=== PATIENT | female | born 2000 | race Caucasian/White ===

== ENCOUNTER 2021-07-09 08:03 | Outpatient (REF) | payer OTHER, SELFPAY ==
--- NOTE | ~2021-07-09 | US_ITS ---
EXAMINATION: US ABDOMEN COMPLETE CLINICAL INFORMATION: Abdominal pain, epigastric pain. COMPARISON: None. TECHNIQUE: Real-time imaging of the abdominal viscera. FINDINGS: PANCREAS: Normal. ABDOMINAL AORTA: The proximal, mid, and distal segments are normal in caliber. INFERIOR VENA CAVA: Visualized portions are normal. LIVER: The liver is normal in size. The liver contour is normal. There is diffuse increased liver parenchymal echogenicity, consistent with hepatic steatosis. No focal hepatic lesion. There is no intrahepatic biliary duct dilatation seen. GALLBLADDER: Normal. The gallbladder is physiologically distended without evidence of stones, sludge, polyps, wall thickening or pericholecystic fluid. COMMON BILE DUCT: Normal in caliber measuring 0.2 cm in diameter. RIGHT KIDNEY: Normal. No hydronephrosis. No renal calculi or focal parenchymal lesions. The kidney measures 11.9 cm in maximum dimension. LEFT KIDNEY: Normal. No hydronephrosis. No renal calculi or focal parenchymal lesions. The kidney measures 12.4 cm in maximum dimension. SPLEEN: Normal. The spleen measures 12.7 cm in maximum dimension. FREE FLUID: None. US/US abdomen complete IMPRESSION: Findings are most consistent with hepatic steatosis. Otherwise, no acute sonographic abnormalities to explain the patient's symptoms.
== END 2021-07-09 08:04 | disposition home or self-care (01) ==
LOC: HO.US 08:03
PROVIDERS: PCP Pediatrics; Visit Provider Internal Medicine
DX: R10.13 Epigastric pain (principal)
CPT/HCPCS: 76700

== ENCOUNTER 2021-12-16 10:41 | Emergency (ER) | payer OTHER, SELFPAY ==
[2021-12-16 10:45] VITALS: BP 141/67; PULSE 70; RESP 18; TEMP 36.5; O2SAT 97; BMI 40.7
--- NOTE | 2021-12-16 11:13 | ED.ABDPAIN ---
HPI - Abdominal Pain General Chief Complaint: Abdominal Pain Stated Complaint: IBS Time Seen by Provider: 12/16/21 11:04 Source: patient Mode of arrival: ambulatory Limitations: no limitations History of Present Illness HPI narrative: Patient comes to the emergency room complaining diffuse abdominal pain. Patient states that she has had diarrhea for a month. Patient has been diagnosed previously with IBS. Patient states she has not been seen by Gastroenterology, Dr. Mcmullen for almost 6 months. Patient states that she has no vomiting, only abdominal cramping, not alternating with constipation. Patient denies blood in the stool. Also, patient states that she is being worked up for amenorrhea, she has an appointment pending with her primary care physician, and soon to be referred to Endocrinology. Related Data Previous Rx's Medication Instructions Recorded loperamide 2 mg capsule 2 mg PO Q4H PRN #30 cap 12/16/21 Allergies Allergy/AdvReac Type Severity Reaction Status Date / Time sulfamethoxazole Allergy Mild HIVES Unverified 03/29/20 16:53 [From BACTRIM] trimethoprim [From BACTRIM] Allergy Mild HIVES Unverified 03/29/20 16:53 Review of Systems Review of Systems Constitutional : No Weight loss, No Fever, No Chills, No Night Sweats, No Fatigue, No Malaise ENT/Mouth : No Hearing loss, No Ear Pain, No Nasal Congestion, No Sinus Pain, No Hoarseness, No sore throat, No Rhinorrhea, No Swallowing Difficulty Eyes: No Eye Pain, No Swelling, No Redness, No Foreign Body, No Discharge, No Vision Changes Cardiovascular : No Chest Pain, No SOB, No Dyspnea on Exertion, No Orthopnea, No Edema, No Palpitations Respiratory : No Cough, No Sputum, No Wheezing, No Smoke Exposure, No Dyspnea Gastrointestinal : No Nausea, No Vomiting, complaining of chronic diarrhea for over a month, history of IBS, No Constipation, diffuse abdominal cramping, No Hematochezia, No Melena Genitourinary : Chronic amenorrhea, No Dysuria, No Urinary Frequency, No Hematuria, No Urinary Incontinence, No Urgency, No Flank Pain, No Urinary Flow Changes, No Hesitancy Musculoskeletal : No joint pain, No Myalgias, No Joint Swelling Skin : No Skin Lesions, No rash Neuro : No Weakness, No Numbness, No Paresthesias, No Loss of Consciousness, No Dizziness, No Headache Psych : No Anxiety/Panic, No Depression, No SI/HI/AH/VH, No Social Issues, Heme/Lymph: No Bruising, No Bleeding,No Lymphadenopathy Endocrine : No Polyuria, No Polydipsia, No Temperature Intolerance [facility] Past Medical History Medical History Amenorrhea IBS (irritable bowel syndrome) Social History Social History Advance Directives: No Advance Directives Information Provided: No Physical Exam ED Vital Signs: Vital Signs - 24 hr 12/16/21 10:45 Temperature 97.7 F Pulse Rate 70 Respiratory Rate 18 Blood Pressure 141/67 H Pulse Oximetry 97 BMI result Body Mass Index 40.7 Const Other: Appearance: Alert. Oriented X3. No acute distress. Eyes: Pupils equal, round and reactive to light. ENT: Pharynx normal. Neck: Normal inspection. Neck supple. No lymph nodes noted. No crepitus CVS: Normal heart rate and rhythm. Pulses normal. Normal S1 and S2 Respiratory: No respiratory distress. Breath sounds normal. No Wheezing. No rales Abdomen: Soft, mild discomfort on deep palpation in the periumbilical area, negative McBurney's point , negative Hendrickson sign, No rigidity. No distention. Skin: Skin warm and dry. Normal skin color. Normal skin turgor. Extremities: No lower extremity edema. No Lacerations. No Rash Neuro: Oriented X 3. No motor deficit. No sensory deficit. Moving all extremities. No slurred speech. CN 2 through 12 grossly intact Psych: calm, cooperative, normal affect Course Course Course Narrative: Patient does not seem dehydrated. Although labs are pending. I discussed the labs with the patient. Also, we attempted to get a stool sample from the patient. However she was unable to provide a sample here in the emergency room. Patient will go home with an outpatient lab order. It was explained to the patient that the stool sample may be time sensitive, and the results may be invalid, and she may have to repeat the test again. I discussed the patient with Dr. Emerson who recommended the stool sample. Also, patient will be prescribed loperamide until her visit with Dr. Emerson. No other medications will be started at this time. MDM - Abdominal Pain Lab Data Result diagrams: 12/16/21 11:25 12/16/21 11:25 Labs: Lab Results 12/16/21 12/16/21 12/16/21 Range/Units 11:25 11:25 11:25 WBC 3.8 L (4.8-10.8) X10*3/uL RBC 5.01 (4.20-5.50) X10*6/uL Hgb 13.5 (12.0-16.0) g/dl Hct 42.5 (37.0-47.0) % MCV 84.8 (80.0-98.0) fL MCH 26.9 L (27.0-33.0) pg MCHC 31.8 (31.0-35.0) g/dl RDW 13.9 (11.0-16.0) % Plt Count 205 (160-400) X10*3/uL MPV 11.9 (9.4-12.3) fL Immature Gran % (Auto) 0.3 (0.0-0.4) % Neut % (Auto) 40.7 L (45-73) % Lymph % (Auto) 43.3 H (20-40) % [place] % (Auto) 12.8 H (2-11) % Eos % (Auto) 2.1 (0-4) % Baso % (Auto) 0.8 (0-2) % Lymph # (Auto) 1.7 (1.2-4.9) X10*3/uL [place] # (Auto) 0.5 (0.1-1.2) X10*3/uL Eos # (Auto) 0.1 (0.0-0.4) X10*3/uL Baso # (Auto) 0.0 (0.0-0.2) X10*3/uL Abs Immat Gran (auto) 0.01 (0.00-0.03) X10*3/uL Absolute Neuts (auto) 1.6 L (2.0-8.3) x10*3/uL Absolute Nucleated RBC 0.000 (0.0-0.012) X10*3/uL Nucleated RBC % (auto) 0.0 (0.0-0.2) /100WBC Sodium 140 (135-145) mmol/L Potassium 3.9 (3.3-5.1) mmol/L Chloride 107 (96-108) mmol/L Carbon Dioxide 24 (22-29) mmol/L Anion Gap 13 (12-20) BUN 12 (9-16) mg/dL Creatinine 0.84 (0.5-1.4) mg/dL Estim Creat Clear Calc 122.3 Estimated GFR > 60 Random Glucose 94 (60-115) mg/dL Calcium 9.3 (8.4-10.2) mg/dL Magnesium 2.0 (1.6-2.6) mg/dL Total Bilirubin 0.4 (0.0-1.0) mg/dL Direct Bilirubin 0.2 (0.0-0.5) mg/dL AST 31 (5-31) U/L ALT 54 H (0-31) U/L Alkaline Phosphatase 72 (39-117) U/L Total Protein 7.2 (6.5-8.0) g/dL Albumin 4.2 (3.5-5.0) g/dL TSH 1.08 (0.32-4.0) uIU/mL Urine Color Urine Appearance Urine pH (5.0-8.0) Ur Specific [place] (1.005-1.025) Urine Protein (NEG-TRACE) MG/DL Urine Glucose (UA) (NEG) MG/DL Urine Ketones (NEG) MG/DL Urine Blood (NEG) Urine Nitrite (NEG) Ur Leukocyte Esterase (NEG) Urine Test (NEGATIVE) COVID-19 (JEFRY) (Negative) COVID-19 Clin Com 12/16/21 12/16/21 12/16/21 Range/Units 11:51 12:09 12:09 WBC (4.8-10.8) X10*3/uL RBC (4.20-5.50) X10*6/uL Hgb (12.0-16.0) g/dl Hct (37.0-47.0) % MCV (80.0-98.0) fL MCH (27.0-33.0) pg MCHC (31.0-35.0) g/dl RDW (11.0-16.0) % Plt Count (160-400) X10*3/uL MPV (9.4-12.3) fL Immature Gran % (Auto) (0.0-0.4) % Neut % (Auto) (45-73) % Lymph % (Auto) (20-40) % [place] % (Auto) (2-11) % Eos % (Auto) (0-4) % Baso % (Auto) (0-2) % Lymph # (Auto) (1.2-4.9) X10*3/uL [place] # (Auto) (0.1-1.2) X10*3/uL Eos # (Auto) (0.0-0.4) X10*3/uL Baso # (Auto) (0.0-0.2) X10*3/uL Abs Immat Gran (auto) (0.00-0.03) X10*3/uL Absolute Neuts (auto) (2.0-8.3) x10*3/uL Absolute Nucleated RBC (0.0-0.012) X10*3/uL Nucleated RBC % (auto) (0.0-0.2) /100WBC Sodium (135-145) mmol/L Potassium (3.3-5.1) mmol/L Chloride (96-108) mmol/L Carbon Dioxide (22-29) mmol/L Anion Gap (12-20) BUN (9-16) mg/dL Creatinine (0.5-1.4) mg/dL Estim Creat Clear Calc Estimated GFR Random Glucose (60-115) mg/dL Calcium (8.4-10.2) mg/dL Magnesium (1.6-2.6) mg/dL Total Bilirubin (0.0-1.0) mg/dL Direct Bilirubin (0.0-0.5) mg/dL AST (5-31) U/L ALT (0-31) U/L Alkaline Phosphatase (39-117) U/L Total Protein (6.5-8.0) g/dL Albumin (3.5-5.0) g/dL TSH (0.32-4.0) uIU/mL Urine Color YELLOW Urine Appearance CLEAR Urine pH 6.0 (5.0-8.0) Ur Specific [place] 1.015 (1.005-1.025) Urine Protein NEG (NEG-TRACE) MG/DL Urine Glucose (UA) NEG (NEG) MG/DL Urine Ketones NEG (NEG) MG/DL Urine Blood NEG (NEG) Urine Nitrite NEG (NEG) Ur Leukocyte Esterase NEG (NEG) Urine Test NEGATIVE (NEGATIVE) COVID-19 (JEFRY) Negative (Negative) COVID-19 Clin Com See Note Discharge Plan Discharge Clinical Impression: Diarrhea Patient Disposition: Home, Self-Care Instructions: Acute Diarrhea (ED) Additional Instructions: Please follow-up with gastroenterology as scheduled. You were given a laboratory order form. Please provide a stool sample and take it to the lab in the hospital. It is possible, that the test may be time sensitive and it may be invalid and the test may have to be repeated. Please follow-up with your primary care physician tomorrow. If you have any worsening or new symptoms, please return to the emergency room or call 911 Prescriptions: New loperamide 2 mg capsule 2 mg PO Q4H PRN (Reason: loose stool) Qty: 30 0RF Rx Instructions: administer after each loose stool until symptoms controlled; do not exceed 8 mg per 24 hrs Referrals: Catalino Emerson [Physician] - (as scheduled)
[2021-12-16 11:31] LABS: MANUAL DIFF FLAG NO
[2021-12-16 11:32] LABS: Basophils Percent Auto 0.8 % (0-2); Eosinophils Absolute Auto 0.1 X10*3/uL (0.0-0.4); Eosinophils Percent Auto 2.1 % (0-4); Hematocrit 42.5 % (37.0-47.0); Hemoglobin 13.5 g/dl (12.0-16.0); Imm Gran Abs Auto 0.01 X10*3/uL (0.00-0.03); Imm Gran Pct Auto 0.3 % (0.0-0.4); Lymphocytes Absolute Auto 1.7 X10*3/uL (1.2-4.9); Lymphocytes Percent Auto 43.3 % (20-40); Mean Corpuscular HGB Conc 31.8 g/dl (31.0-35.0); Mean Corpuscular Hemoglobin 26.9 pg (27.0-33.0); Mean Corpuscular Volume 84.8 fL (80.0-98.0); Mean Platelet Volume 11.9 fL (9.4-12.3); Monocytes Absolute Auto 0.5 X10*3/uL (0.1-1.2); Monocytes Percent Auto 12.8 % (2-11); Neutrophils Absolute Auto 1.6 x10*3/uL (2.0-8.3); Neutrophils Percent Auto 40.7 % (45-73); Platelet Count 205 X10*3/uL (160-400); Red Blood Count 5.01 X10*6/uL (4.20-5.50); Red Cell Distribution Width 13.9 % (11.0-16.0); White Blood Count 3.8 X10*3/uL (4.8-10.8)
[2021-12-16 11:46] LABS: Alanine Aminotransferase 54 U/L (0-31); Albumin Level 4.2 g/dL (3.5-5.0); Alkaline Phosphatase 72 U/L (39-117); Anion Gap 13 (12-20); Aspartate Amino Transferase 31 U/L (5-31); Bilirubin Direct 0.2 mg/dL (0.0-0.5); Bilirubin Total 0.4 mg/dL (0.0-1.0); Blood Urea Nitrogen 12 mg/dL (9-16); Calcium 9.3 mg/dL (8.4-10.2); Carbon Dioxide 24 mmol/L (22-29); Chloride 107 mmol/L (96-108); Creatinine Clr Calc Pharmacy 122.3; Estimated Glomerular Filt Rate > 60; Glucose Random 94 mg/dL (60-115); Potassium 3.9 mmol/L (3.3-5.1); Sodium 140 mmol/L (135-145); Total Protein 7.2 g/dL (6.5-8.0)
[2021-12-16 12:06] LABS: TSH reflex Free T4 1.08 uIU/mL (0.32-4.0)
[2021-12-16 12:21] LABS: COVID-19 Test Negative (Negative)
[2021-12-16 12:27] LABS: Appearance Urine CLEAR; Color Urine YELLOW; Glucose Urine UA NEG (NEG); Leukocyte Esterase Urine NEG (NEG); Nitrite Urine NEG (NEG); Specific Gravity - Urine 1.015 (1.005-1.025); Urine Blood NEG (NEG); Urine Ketones NEG (NEG); Urine Protein NEG (NEG-TRACE)
[2021-12-16 12:29] LABS: UPreg QC Valid YES; Urine Pregnancy NEGATIVE (NEGATIVE)
[2021-12-16] MEDS: Loperamide HCl 2 MG CAPSULE 4 MG PO (13:57)
== END 2021-12-16 14:04 | disposition home or self-care (01) ==
PROVIDERS: Emergency Provider Emergency Medicine; PCP Physician Assistant
DX: R19.7 Diarrhea, unspecified (principal); R10.9 Unspecified abdominal pain; Z20.822 Contact with and (suspected) exposure to COVID-19
CPT/HCPCS: 36415; 80048; 80076; 81003; 81025; 83735; 84443; 85025; 87635; 99283; 99284

== ENCOUNTER 2023-12-02 08:42 | Outpatient (AMB) | payer OTHER, SELFPAY ==
--- NOTE | 2023-12-02 08:44 | MHC.PC.OV ---
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 Intake Note: New patient/ physical exam request Resume Writer Required: No Accompanied by: Self / Same As Patient Allergies sulfamethoxazole [From BACTRIM] Allergy (Mild, Verified 12/02/23 09:04) HIVES trimethoprim [From BACTRIM] Allergy (Mild, Verified 12/02/23 09:04) HIVES Medication List - Last Reconciled 12/02/23 by Sharon Hernandez MD No Known Home Meds Tobacco use date assessed: 12/02/23 Dental Screening Dental Screen Date: 12/02/23 Did you have a dental visit in the last 12 months?: Yes Did you have a dental problem in the last 6 months where you did not have access to dental care?: No Was dental information given to patient?: Patient has dentist HPI HPI Comments History of Present Illness Details This is a 23-year-old female with morbid obesity that comes for her physical exam. Her BMI is 41.5 and she declines weight loss surgery. Complains of occasional abdominal bloating and some fatigue. No chest pain or shortness of breath. Has never had a Pap smear. [facility] Medical History (Updated 12/02/23 @ 09:20 by Sharon Hernandez MD) Amenorrhea IBS (irritable bowel syndrome) Surgical History History of wisdom tooth extraction Family History (Updated 12/02/23 @ 09:09 by Sharon Hernandez MD) Mother Fibromyalgia Hypertension Diabetes Father Hypertension Diabetes Prostate cancer Dementia Heart disease Parkinsons disease COPD (chronic obstructive pulmonary disease) Social History Housing: House Alcohol intake: never Patient Tobacco Use Status: Never used Tobacco e-Cigarette/Vaping Use: Never Used Second Hand Smoke Exposure: No service: No Current occupational status: employed Current occupational exposures/hazards: No Cognitive needs: No Hearing needs: No Vision needs: No Questionnaire PHQ-9 Over the last 2 weeks, how often have you been bothered by any of the following problems? 1. Little interest or pleasure in doing things: not at all 2. Feeling down, depressed, or hopeless: not at all 3. Trouble falling or staying asleep, or sleeping too much: not at all 4. Feeling tired or having little energy: not at all 5. Poor appetite or overeating: not at all 6. Feeling bad about yourself - or that you are a failure or have let yourself or your family down: not at all 7. Trouble concentrating on things, such as reading the newspaper or watching television: not at all 8. Moving or speaking so slowly that other people could have noticed. Or the opposite - being so fidgety or restless that you have been moving around a lot more than usual: not at all 9. Thoughts that you would be better off or of hurting yourself in some way: not at all Total score: 0 Depression Screening Interpretation: Negative Depression Screening Done: Yes 06429 - PHQ-9 Billing: Yes Source: Developed by Drs. Catalino Franklin, Jessi No, Isacc Hackett and colleagues, with an educational moni from [employer]. Thrive Questionnaire Date Thrive assessed: 12/02/23 I am a: Patient What is your living situation today?: I have a steady place to live Within the past 12 months, did the food you bought not last and you didn't have the money to get more?: Never true Within the past 12 months, did you worry whether your food would run out before you got money to buy more?: Never true Do you have trouble paying for medicines?: No Do you have trouble getting transportation to medical appointments?: No Do you have trouble paying your heating and electricity bill?: No Do you have trouble taking care of your child, family member or friend?: No Do you have trouble with day-to-day activities such as bathing, preparing meals, shopping, managing finances, etc.?: No Are you currently unemployed and looking for a job?: No Are you interested in more education?: No Please select the resources that you would like help with: None Currently or been in a relationship where the following occur: no concerns reported THRIVE Score: 0 AUDIT C Alcohol Use Questionnaire (AUDIT-C) 1. How often do you have a drink containing alcohol?: Never Total Score: 0 Score Reviewed/Action Taken: No RICARDO-7 AMB Questionnaire RICARDO-7 Date RICARDO - 7 assessed: 12/02/23 Feeling nervous, anxious, or on edge: 0 = Not at all Not being able to stop or control worryin = Not at all Worrying too much about different things: 0 = Not at all Trouble relaxin = Not at all Being so restless that it is hard to sit still: 0 = Not at all Becoming easily annoyed or irritable: 0 = Not at all Feeling afraid as if something awful might happen: 0 = Not at all Total RICARDO-7 score (0-4 normal; 5-9 mild; 10-14 moderate; 15-21 severe): 0 Source: Developed by Drs. Catalino Franklin, Jessi No, Isacc Hackett and colleagues, with an educational moni from [employer]. RICARDO-7 Assessment Billing RICARDO-7 Assessment Tool: RICARDO-7 Assessment 93352 Review of Systems Const All systems reviewed & are unremarkable except as noted in HPI and below Eyes Reports no additional complaints, Denies change in vision and Denies other visual disturbances Card Denies chest pain at rest, Denies chest pain with activity, Denies edema, Denies irregular heart rhythm, Denies claudication, Denies dyspnea, Denies dyspnea on exertion, Denies orthopnea, Denies paroxysmal nocturnal dyspnea and Denies slow heart rate Resp Denies cough, Denies dyspnea and Denies dyspnea on exertion GI Denies abdominal pain, Denies change in bowel habits, Denies excessive flatus, Denies nausea and Denies vomiting Denies urinary incontinence, Denies urinary hesitancy and Denies urinary urgency Physical exam (Primary Care) Vital Signs: Last Vital Signs BP 118/80 12/02/23 08:45 BMI result Body Mass Index 41.4 Tobacco/Smoking Status: Tobacco use Status Tobacco use date assessed 12/02/23 12/02/23 08:57 Patient Tobacco Use Status Never used Tobacco 12/02/23 08:57 e-Cigarette/Vaping Use Never Used 12/02/23 08:57 PHQ-9: PHQ-9 Score PHQ-9: Total score 0 12/02/23 08:57 Depression Screening Interpretation: Negative Thrive Assessment: Date of Thrive Assessment Date Thrive assessed 12/02/23 12/02/23 08:57 Currently or been in a relationship where the following occur: no concerns reported Const Orientation/consciousness: patient oriented x3 HENNC Head: Yes normal to inspection, Yes normocephalic and Yes atraumatic Ears: external ears normal Eyes General: appearance normal, both eyes and all related structures Eyelids: Yes eyelids normal Conjunctivae: conjunctivae normal Neck Neck: Yes normal visual inspection and Yes supple Resp Effort & Inspection: normal respiratory effort Auscultation: clear to auscultation bilaterally Cardio Jugular venous distension: no JVD Rate: regular rate Rhythm: regular rhythm Heart sounds: S1 normal heart sound present and S2 normal heart sound present GI Inspection: Yes normal to inspection Palpation (GI): Soft to palpation and nontender Auscultation: normal bowel sounds Skin General skin exam: no rashes or lesions noted Neuro General: patient oriented x3 and no focal motor deficits Extrem General: Yes full ROM Psych Appearance: grossly normal Assessment and Plan Assessment & Plan (1) Physical exam: Code(s): Z00.00 - Encounter for general adult medical examination without abnormal findings Plan: Repeat in a year. (2) Morbid obesity with BMI of 40.0-44.9, adult: Code(s): E66.01 - Morbid (severe) obesity due to excess calories; Z68.41 - Body mass index [BMI] 40.0-44.9, adult Plan: Advised to do diet and exercise. Patient declines weight loss surgery. She is considering Wegovy. Orders: Orders Vitamin B12 and Folate Today R53.83 - Other fatigue Lipid Panel Today Z00.00 - Encounter for general adult medical examination without abnormal findings Comprehensive [place]. Panel Fast Today Z00.00 - Encounter for general adult medical examination without abnormal findings Complete Blood Count Auto Diff Today E66.01 - Morbid (severe) obesity due to excess calories, Z68.41 - Body mass index [BMI] 40.0-44.9, adult Thyroid Stimulating Hormone Today E66.01 - Morbid (severe) obesity due to excess calories, Z68.41 - Body mass index [BMI] 40.0-44.9, adult Celiac Disease Panel Today R14.0 - Abdominal distension (gaseous) Vitamin D 25-OH Total Today R53.83 - Other fatigue Referrals PER[employer]ME [employer]ER Referral Z12.4 - Encounter for screening for malignant neoplasm of cervix Medications: Discontinued loperamide administer after each loose stool until symptoms controlled; do not exceed 8 mg per 24 hrs Discontinued Reason: Patient Completed Course 2 mg PO Q4H PRN 30 caps 0RF loose stool Coding Level of Care Code New Pt Prev Care [id number] Diagnoses Physical exam Z00.00 Morbid obesity with BMI of 40.0-44.9, adult E66.01; Z68.41 Additional Codes RICARDO-7 Assessment Billing - RICARDO-7 Assessment Tool: RICARDO-7 Assessment 94183 ([id number]) Time Spent (min) 30
[2023-12-02 08:45] VITALS: BP 118/80; BMI 41.4
== END 2023-12-02 09:20 | disposition home or self-care (01) ==
PROVIDERS: PCP Internal Medicine; Visit Provider Internal Medicine
DX: Z00.00 Encounter for general adult medical examination without abnormal findings (principal); E66.01 Morbid (severe) obesity due to excess calories; Z68.41 Body mass index [BMI] 40.0-44.9, adult
CPT/HCPCS: 99385

== ENCOUNTER 2023-12-04 06:34 | Outpatient (REF) | payer OTHER, SELFPAY ==
[2023-12-04 06:48] LABS: MANUAL DIFF FLAG NO
[2023-12-04 07:44] LABS: Basophils Absolute Auto 0.1 X10*3/uL (0.0-0.2); Basophils Percent Auto 1.1 % (0-2); Eosinophils Absolute Auto 0.2 X10*3/uL (0.0-0.4); Eosinophils Percent Auto 3.2 % (0-4); Hematocrit 41.6 % (37.0-47.0); Hemoglobin 13.8 g/dl (12.0-16.0); Imm Gran Abs Auto 0.01 X10*3/uL (0.00-0.03); Imm Gran Pct Auto 0.2 % (0.0-0.4); Lymphocytes Percent Auto 43.2 % (20-40); Mean Corpuscular HGB Conc 33.2 g/dl (31.0-35.0); Mean Corpuscular Volume 84.6 fL (80.0-98.0); Mean Platelet Volume 12.5 fL (9.4-12.3); Monocytes Absolute Auto 0.5 X10*3/uL (0.1-1.2); Monocytes Percent Auto 11.1 % (2-11); Neutrophils Absolute Auto 1.9 x10*3/uL (2.0-8.3); Neutrophils Percent Auto 41.2 % (45-73); Platelet Count 226 X10*3/uL (160-400); Red Blood Count 4.92 X10*6/uL (4.20-5.50); Red Cell Distribution Width 13.7 % (11.0-16.0); White Blood Count 4.7 X10*3/uL (4.8-10.8)
[2023-12-04 08:19] LABS: Alanine Aminotransferase 21 U/L (0-31); Albumin Level 4.2 g/dL (3.5-5.0); Alkaline Phosphatase 84 U/L (39-117); Anion Gap 12 (12-20); Aspartate Amino Transferase 18 U/L (5-31); Bilirubin Total 0.3 mg/dL (0.0-1.0); Blood Urea Nitrogen 11 mg/dL (9-16); Calcium 9.5 mg/dL (8.4-10.2); Carbon Dioxide 23 mmol/L (22-29); Chloride 109 mmol/L (96-108); Cholesterol 144 mg/dL (<200); Estimated Glomerular Filt Rate > 60; Glucose Fasting 96 mg/dL (60-99); HDL Cholesterol 38 mg/dL (>40); LDL Cholesterol Calculated 92 mg/dL (<100); Potassium 3.9 mmol/L (3.3-5.1); Sodium 140 mmol/L (135-145); Total Protein 7.6 g/dL (6.5-8.0); Triglycerides 74 mg/dL (<150)
[2023-12-04 08:35] LABS: Thyroid Stimulating Hormone 2.39 uIU/mL (0.32-4.0)
[2023-12-04 09:06] LABS: Vitamin B12 290 pg/mL (200-900)
[2023-12-08 17:39] LABS: Immunoglobulin A 197 mg/dL (47-310); Transglutaminase IgA <1.0 U/mL
== END 2023-12-04 06:35 | disposition home or self-care (01) ==
LOC: HO.LAB 06:34
PROVIDERS: PCP Internal Medicine; Visit Provider Internal Medicine
DX: Z00.00 Encounter for general adult medical examination without abnormal findings (principal); E66.01 Morbid (severe) obesity due to excess calories; Z68.41 Body mass index [BMI] 40.0-44.9, adult; R14.0 Abdominal distension (gaseous); R53.83 Other fatigue
CPT/HCPCS: 36415; 80053; 80061; 82306; 82607; 82746; 82784; 84443; 85025; 86364

== ENCOUNTER 2024-01-11 13:47 | Outpatient (AMB) | payer OTHER, SELFPAY ==
--- NOTE | 2024-01-11 13:59 | A.OFFVIS_ITS ---
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 Dress Shoe Inspector Required: No Dress Shoe Inspector Services: Dress Shoe Inspector Present Information Interpreted: clinical only Environmental Department Manager: Environmental Department Manager Present Allergies sulfamethoxazole [From BACTRIM] Allergy (Mild, Verified 01/11/24 14:00) HIVES trimethoprim [From BACTRIM] Allergy (Mild, Verified 01/11/24 14:00) HIVES Medication List - Last Reconciled 01/11/24 by Bri Byrnes CNM cholecalciferol (vitamin D3) 25 mcg PO DAILY 90 days Is last menstrual period known: Yes Last menstrual period: 01/06/24 Do you need a note to return to daycare/school/sports/work: No HPI HPI INSTITUTIONAL AIDE annual exam: Details: 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 She used to see Dr. Corina harvey at [facility] and says that there were conversations about PCOS and she did have some blood tests but she did not meet all of the criteria she does not really have that much facial hair other than what she thinks is normal for her [place] women she does not really have any thinning of her hair on her scalp she does have a little bit of darkening of the skin in her axilla and little bit at her neck. She says she did test as prediabetic before but the more recent tests were in the normal range she also knows for herself that her eating has an emotional content in that she did gain some weight in the last year since her father she is looking at those issues and working through that and working on the emotional connections with food and she is also doing combination of calorie counting and also paying attention to eating healthier foods she is trying to get back to the gym but she does have some body sensitivity in that setting. She did not think that she needed STI testing in that she has not sexually active at the moment but she was up until about a year ago. She has made the decision to return to abstinence and is planning for marriage at some point with her long-term partner. 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 Her periods can be right very irregular but they were more regular is year since she started trend her attention to losing weight and she thinks she may lost about 10 lb or more doing so. She says her doctor was going to put her on would go the but it was not approved by the insurance. So she is interested in other modalities of weight management though she has not interested in surgery as she has no who have had not good outcomes. [facility] Medical History Amenorrhea IBS (irritable bowel syndrome) Surgical History History of wisdom tooth extraction Family History Mother Fibromyalgia Hypertension Diabetes Father Hypertension Diabetes Prostate cancer Dementia Heart disease Parkinsons disease COPD (chronic obstructive pulmonary disease) Social History Housing: House Alcohol intake: never Patient Tobacco Use Status: Never used Tobacco e-Cigarette/Vaping Use: Never Used Second Hand Smoke Exposure: No service: No Current occupational status: employed Current occupational exposures/hazards: No Cognitive needs: No Hearing needs: No Vision needs: No Female Reproductive History Menstrual Age of Menarche: 12 Duration of menses: 3-5 days Date of last menstrual period: 01/06/24 control method: none Total pregnancies: 0 History of abnormal pap smear: No (no previous pap) Physical Exam Vital Signs: Last Vital Signs BP 112/68 01/11/24 14:00 BMI result Body Mass Index 41.8 Const General: healthy appearing, comfortable, no acute distress, well developed and alert Nutritional Appearance: average body habitus Orientation/consciousness: patient oriented x3 Limitations: no limitations HEENT Head: Yes normocephalic Neck Neck: Yes normal visual inspection Chest Chest palpation & inspection: normal inspection of the chest Breast/axilla inspection: normal inspection of the breasts and normal inspection of the axillae Breast/axilla palpation: normal palpation of the breasts and normal palpation of the axillae Resp Effort & Inspection: normal respiratory effort GI Inspection: Yes normal to inspection, No Abdominal wall edema and No distended Palpation (GI): Soft to palpation and nontender Other: Vagina pink and moist cervix nulliparous pink smooth mobile deep in pelvis uterus and adnexa difficult to palpate but nontender non enlarged good tone with Kegel. Very clear healthy discharge consistent with end of menses. General: Yes bladder normal to palpation External Female Exam: normal external appearance and normal appearance of the urethra Speculum Exam - Vagina: normal appearance of the vagina, normal palpation and normal vaginal discharge Speculum Exam - Cervix: normal appearance of the cervix, normal palpation and nontender Bimanual exam- vagina & uterus: normal bimanual exam, normal palpation, uterine size normal, bladder normal to palpation, consistency normal, normal palpation, uterine mobility normal, uterine shape normal, No Cervical tenderness present, non-tender and no cervical motion tenderness Bimanual Exam- Adnexa, other: normal adnexae, no masses, normal and No adnexal tenderness Neuro General: patient oriented x3 Assessment & Plan Assessment & Plan (1) Screening for cervical cancer: Code(s): Z12.4 - Encounter for screening for malignant neoplasm of cervix Category: Medical (2) Morbid obesity with BMI of 40.0-44.9, adult: Code(s): E66.01 - Morbid (severe) obesity due to excess calories; Z68.41 - Body mass index [BMI] 40.0-44.9, adult Category: Medical (3) History of irregular menstrual cycles: Comment: Has had slightly inconclusive workup for PCOS in past has some features is working on losing weight discussed that she does have some features weight loss is primary and she is working on it in comprehensive fashion,,,,, Code(s): Z87.42 - Personal history of other diseases of the female genital tract Category: Medical Plan -----Discussed in this visit the following: healthy balanced diet, regular and consistent exercise, getting recommended health screens, doing the best she can for her particular health concerns, kegel exercises, pap smear screening and followup recommendations, mammography screening and SBE, normal changes in cycles in her life stage--- .-I reviewed with the patient, all of the currently common used methods of control that are available. We reviewed how they work in the body, how they are taken, common side effects, uncommon side effects, precautions, and contraindications. -Discussed also factors that influence their effectiveness and use, and womens satisfaction with the method. -Discussed how each are used, and drawbacks of each method as well. -Methods covered included: condoms, control pills, control patches, control rings, Depo-Provera, Nexplanon, Mirena and Kyleena IUDs, and ParaGard IUDs. All of the above methods were covered in great detail including their side effect profiles and common experiences that women have and ways to mitigate against the negative experiences including attention to diet and exercise patient's with bleeding challenges that may occur her and efforts to time the initiation of the method to this start of the menstrual period. ---Discussed PCOS in general and specifically about the interplay of the a bnormal hormonal milieu related to being overweight, with the elevations of many hormone levels, including testosterone and estrogen, as well as others that contribute to cycles that are anovulatory and therefore prolonged, and when periods do come they come very heavy, and can contribute to lots of cramping, with passage of clots and anemia. Discussed the common symptoms related to the elvated hormonal levels, including increased facial hair, male pattern hair thinning, acne, and increased central abdominal girth. Discussed the interplay with difficulty getting when desired, but still possible, and therefore the need to contracept as appropriate and when needed. Discussed the role of weight loss as the primary, most important, and most likely to succeed, intervention, in achieving healthier status as regards PCOS, and ovulatory regular cycles. Additionally the very important relationship to elevated insulin levels, and blood sugars, and high risk of pre diabetes, progressing to diabetes as well as other metabolic syndromes related to this was discussed. Also discussed common interventions for some of the above, including if appropriate, use of oral contraceptives, and progestin iuds, and provera. ---Discussed with pt, her wt, and BMI, and her goals. Discussed ideal dietary guidelines to assist in weight loss, focusing on vegetables and fruits and lean proteins, and minimizing fats and carbohydrates and eliminating empty calories. Discussed exercise, including regular, sufficient, and consistent cardio based exercise, and weight bearing exercise. Discussed barriers to exercise and hea now.thy eating, and possible ways of establishing newer healthier habits. Discussed supports to help in her efforts, and timing issues. Discussed adequate sleep, and ways to achieve this. Discussed adequate water intake.-- For now her wished her well with her efforts to lose weight and get healthier this coming year and I did offer her the weight management referral however I had been told that they are steering more towards the surgical options at the current moment so she declined that. She will be speaking with her primary care provider about next steps forward. Extensive discussion about PCOS and criteria I did offer her a pelvic ultrasound to see if she has any of the tell till follicles though discussed primarily that PCOS is a diagnosis of many factors contributing not just 1 particular test. She declines pelvic ultrasound at this time. And in addition weight loss is the most helpful tool in managing symptoms I did also discuss the possibility of control pills to manage regular menses but she feels that on the whole menses are becoming more regular she is gradually uses weight and she declines anything for. Orders: Orders CT NG by PCR Today N89.8 - Other specified noninflammatory disorders of vagina, Z11.3 - Encounter for screening for infections with a predominantly sexual mode of transmission Pap Smear Today Z01.419 - Encounter for gynecological examination (general) (routine) without abnormal findings Bacterial Vaginosis Panel Today N89.8 - Other specified noninflammatory disorders of vagina Coding Level of Care Code New Pt Prev Care 18-39yr([id number] Diagnoses Screening for cervical cancer Z12.4 Morbid obesity with BMI of 40.0-44.9, adult E66.01; Z68.41 History of irregular menstrual cycles Z87.42
[2024-01-11 14:00] VITALS: BP 112/68; BMI 41.8
== END 2024-01-11 15:14 | disposition home or self-care (01) ==
LOC: HO.HWSM 13:47
PROVIDERS: PCP Internal Medicine; Visit Provider Advanced Practice Midwife
DX: Z01.419 Encounter for gynecological examination (general) (routine) without abnormal findings (principal); E66.01 Morbid (severe) obesity due to excess calories; Z68.41 Body mass index [BMI] 40.0-44.9, adult; Z87.42 Personal history of other diseases of the female genital tract
CPT/HCPCS: 99385

== ENCOUNTER 2024-01-11 13:47 | Outpatient (REF) | payer OTHER, SELFPAY ==
[2024-01-12 11:14] LABS: Bacterial Vaginosis PCR NEGATIVE (Negative); Candida Group PCR NOT DETECTED (Not Detect); Candida glab krusei PCR NOT DETECTED (Not Detect); Trichomonas vaginalis PCR NOT DETECTED (Not Detect)
[2024-01-12 11:49] LABS: CT PCR NOT DETECTED (Not Detect.); NG PCR NOT DETECTED (Not Detect.)
== END 2024-01-11 13:48 | disposition home or self-care (01) ==
LOC: HO.LAB 13:47
PROVIDERS: PCP Internal Medicine; Visit Provider Advanced Practice Midwife
DX: Z01.419 Encounter for gynecological examination (general) (routine) without abnormal findings (principal); N89.8 Other specified noninflammatory disorders of vagina; Z20.2 Contact with and (suspected) exposure to infections with a predominantly sexual mode of transmission
CPT/HCPCS: 0352U; 36415; 87491; 87591; 87625; 88175

== ENCOUNTER 2024-12-13 08:21 | Outpatient (AMB) | payer OTHER, SELFPAY ==
[2024-12-13 08:24] VITALS: BP 126/80; BMI 40.9
--- NOTE | 2024-12-13 08:24 | A.OFFPC_ITS ---
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 Accompanied by: Self / Same As Patient Allergies sulfamethoxazole [From BACTRIM] Allergy (Mild, Verified 12/13/24 08:42) HIVES trimethoprim [From BACTRIM] Allergy (Mild, Verified 12/13/24 08:42) HIVES Medication List - Last Reconciled 12/13/24 by hSaron Hernandez MD No Known Home Meds Tobacco use date assessed: 12/13/24 Dental Screening Dental Screen Date: 12/13/24 Did you have a dental visit in the last 12 months?: Yes Did you have a dental problem in the last 6 months where you did not have access to dental care?: No Was dental information given to patient?: Patient has dentist HPI HPI Comments History of Present Illness Details The patient is a 24-year-old female presenting for her physical exam. She has concerns of restless sleep as part of her wellness examination. She experiences discomfort during sleep evidenced by tossing and turning, with her sleep being described as non-restorative. While she denies symptoms typical of sleep apnea such as breathlessness, she finds the lack of quality rest contiguous with daytime fatigue, reaching an energy low by noon. Despite engagement in restful activities, such as watching television, she does not experience drowsiness, nor does she fall asleep in social settings. To address sleep issues, she has been attempting to use magnesium citrate in gummy form and inquires about switching to magnesium oxide in a vitamin form for better results. She is morbidly obese and her dietary habits include efforts towards consumption of dairy-free and low-preservative products, expressed as part of her weight management struggles, including a 5-pound weight loss from the previous year, achieved through regular physical activity. A background of low Vitamin D levels has been previously documented, with plans to continue supplementation, noting her ongoing challenges with maintaining adequate vitamin D levels. The patient has a relevant family medical history highlighting her father's status with multiple chronic conditions including Chronic Obstructive Pulmonary Disease, heart disease, and diabetes, and her mother's ongoing management of diabetes, fibromyalgia, and hypertension. - Tdap (Tetanus, Diphtheria, Pertussis) vaccination administered, with a 10-year booster recommended for the next due in 2034. - Discussed Vitamin D supplementation du e to prior deficiency. - Discussed strategies for sleep hygiene including reducing caffeine post-11:00 AM, maintaining regular physical activity, and ensuring a conducive sleep environment. - Dietary advice provided focusing on pr otein intake and portion control. - Encouragement of regular physical acti vity and monitoring weight management efforts. - Discussion of magnesium oxide for slee p support, recommending 400 mg dose at bedtime. [facility] Medical History Amenorrhea IBS (irritable bowel syndrome) Surgical History History of wisdom tooth extraction Family History Mother Fibromyalgia Hypertension Diabetes Father Hypertension Diabetes Prostate cancer Dementia Heart disease Parkinsons disease COPD (chronic obstructive pulmonary disease) Social History Housing: House Alcohol intake: never Patient Tobacco Use Status: Never used Tobacco e-Cigarette/Vaping Use: Never Used Second Hand Smoke Exposure: No service: No Current occupational status: employed Current occupational exposures/hazards: No Cognitive needs: No Hearing needs: No Vision needs: No Female Reproductive History Menstrual Age of Menarche: 12 Questionnaire PHQ-9 Over the last 2 weeks, how often have you been bothered by any of the following problems? 1. Little interest or pleasure in doing things: not at all 2. Feeling down, depressed, or hopeless: not at all 3. Trouble falling or staying asleep, or sleeping too much: not at all 4. Feeling tired or having little energy: not at all 5. Poor appetite or overeating: not at all 6. Feeling bad about yourself - or that you are a failure or have let yourself or your family down: not at all 7. Trouble concentrating on things, such as reading the newspaper or watching television: not at all 8. Moving or speaking so slowly that other people could have noticed. Or the opposite - being so fidgety or restless that you have been moving around a lot more than usual: not at all 9. Thoughts that you would be better off or of hurting yourself in some way: not at all Total score: 0 Depression Screening Interpretation: Negative Depression Screening Done: Yes 84110 - PHQ-9 Billing: Yes Source: Developed by Drs. Catalino Franklin, Jessi No, Isacc Hackett and colleagues, with an educational moni from [employer]. Thrive Questionnaire Date Thrive assessed: 12/13/24 I am a: Patient What is your living situation today?: I have a steady place to live Within the past 12 months, did the food you bought not last and you didn't have the money to get more?: Never true Within the past 12 months, did you worry whether your food would run out before you got money to buy more?: Never true Do you have trouble paying for medicines?: No Do you have trouble getting transportation to medical appointments?: No Do you have trouble paying your heating and electricity bill?: No Do you have trouble taking care of your child, family member or friend?: No Do you have trouble with day-to-day activities such as bathing, preparing meals, shopping, managing finances, etc.?: No Are you currently unemployed and looking for a job?: No Are you interested in more education?: Yes Please select the resources that you would like help with: None Currently or been in a relationship where the following occur: No concerns reported THRIVE Score: 0 AUDIT C Alcohol Use Questionnaire (AUDIT-C) 1. How often do you have a drink containing alcohol?: Never Total Score: 0 Score Reviewed/Action Taken: No RICARDO-7 AMB Questionnaire RICARDO-7 Date RICARDO - 7 assessed: 12/13/24 Feeling nervous, anxious, or on edge: 1 = Several days Not being able to stop or control worryin = Not at all Worrying too much about different things: 0 = Not at all Trouble relaxin = Several days Being so restless that it is hard to sit still: 1 = Several days Becoming easily annoyed or irritable: 0 = Not at all Feeling afraid as if something awful might happen: 0 = Not at all Total RICARDO-7 score (0-4 normal; 5-9 mild; 10-14 moderate; 15-21 severe): 3 Source: Developed by Drs. Catalino Franklin, Jessi No, Isacc Hackett and colleagues, with an educational moni from [employer]. RICARDO-7 Assessment Billing RICARDO-7 Assessment Tool: RICARDO-7 Assessment 73458 Review of Systems Const All systems reviewed & are unremarkable except as noted in HPI and below Card Denies chest pain at rest, Denies chest pain with activity, Denies edema, Denies irregular heart rhythm, Denies claudication, Denies dyspnea, Denies dyspnea on exertion, Denies orthopnea, Denies paroxysmal nocturnal dyspnea and Denies slow heart rate Resp Denies cough, Denies dyspnea and Denies dyspnea on exertion GI Denies abdominal pain, Denies change in bowel habits, Denies excessive flatus, Denies nausea and Denies vomiting Denies urinary incontinence, Denies urinary hesitancy and Denies urinary urgency Musc Denies abnormal gait, Denies atrophy, Denies deformity and Denies limited range of motion Skin/Breast Denies bleeding lesions, Denies changing lesions and Denies rash Neuro Denies abnormal gait, Denies behavioral changes and Denies lack of coordination Psych Denies behavioral changes Physical exam (Primary Care) Vital Signs: Last Vital Signs BP 126/80 12/13/24 08:24 BMI result Body Mass Index 40.9 BMI Assessment/Plan discussion: High BMI High, discussed plan: lifestyle, weight reduction, dietary and physical activity Tobacco/Smoking Status: Tobacco use Status Tobacco use date assessed 12/13/24 12/13/24 08:28 Patient Tobacco Use Status Never used Tobacco 12/13/24 08:28 e-Cigarette/Vaping Use Never Used 12/13/24 08:28 PHQ-9: PHQ-9 Score PHQ-9: Total score 0 12/13/24 09:06 Depression Screening Interpretation: Negative Thrive Assessment: Date of Thrive Assessment Date Thrive assessed 12/13/24 12/13/24 08:28 Currently or been in a relationship where the following occur: No concerns reported HENIA Head: Yes normal to inspection, Yes normocephalic and Yes atraumatic Ears: external ears normal Eyes General: appearance normal, both eyes and all related structures Eyelids: Yes eyelids normal Conjunctivae: conjunctivae normal Neck Neck: Yes normal visual inspection and Yes supple Resp Effort & Inspection: normal respiratory effort Auscultation: clear to auscultation bilaterally Cardio Jugular venous distension: no JVD Rate: regular rate Rhythm: regular rhythm Heart sounds: S1 normal heart sound present and S2 normal heart sound present GI Inspection: Yes normal to inspection Palpation (GI): Soft to palpation and nontender Auscultation: normal bowel sounds Skin General skin exam: no rashes or lesions noted Neuro General: no focal motor deficits Extrem General: Yes full ROM Psych Appearance: grossly normal Immunizations Boostrix Tdap 2.5 Lf unit-8 mcg-5 Lf/0.5 mL intramuscular syringe Performing Provider: Sharon Hernandez MD Performing Location: [facility] Administered by: DONNIE Rivera on 12/13/24 09:06 Dose Route Admin Location Dispensed Lot Number Expiration Date [facility] Industrial Order Clerk 0.5 mL IM Right Deltoid 0.5 mL [id number] 03/10/27 [id number] [employer] VIS Given Date VIS Provided VIS Publication Date 12/13/24 Single Vaccine 24 Eligibility Eligibility Date Funding Source Not [facility] Eligible 12/13/24 Private Coding Level of Care Code Est Pt Level 3 (31390) Est Pt Prev Care 18-39y(33309) Diagnoses Physical exam Z00.00 Insomnia G47.00 Morbid obesity with BMI of 40.0-44.9, adult E66.01; Z68.41 Hypovitaminosis D E55.9 Additional Codes RICARDO-7 Assessment Billing - RICARDO-7 Assessment Tool: RICARDO-7 Assessment 23246 ([id number]) PHQ-9 - 24816 - PHQ-9 Billing: Yes ([id number]) Time Spent (min) 31 Assessment & Plan Assessment & Plan (1) Physical exam: Code(s): Z00.00 - Encounter for general adult medical examination without abnormal findings Category: Medical (2) Insomnia: Code(s): G47.00 - Insomnia, unspecified Category: Medical (3) Morbid obesity with BMI of 40.0-44.9, adult: Code(s): E66.01 - Morbid (severe) obesity due to excess calories; Z68.41 - Body mass index [BMI] 40.0-44.9, adult Category: Medical (4) Hypovitaminosis D: Code(s): E55.9 - Vitamin D deficiency, unspecified Category: Medical Plan The plan involves addressing the patient's sleep concerns with guidance on sleep hygiene and the prescription of magnesium oxide for potential aid. Vitamin D supplementation continues to remedy past deficiencies. The patient was advised on optimizing nutrition and exercise to support her weight management. Preventative care emphasizes maintaining immunization schedules and routine health screenings. Given family history, I also considered her risk factors for diabetes and cardiovascular conditions, noting the absence of symptomatic indicators at present. Patient was informed and verbally consented to the use of an ambient scribe for clinic note documentation during this visit. I discussed with the patient the importance of addressing her mild anxiety and sleep issues, including non-pharmacologic interventions such as maintaining good sleep hygiene, reducing caffeine intake after 11:00 AM, and appropriate timing for physical activity. Magnesium oxide, at the dosage of 400 mg at bedtime, was recommended based on conventional practices for its sedative properties. We reviewed dietary measures to aid in weight control, highlighting the importance of protein intake and limiting sugars. I updated her on appropriate vaccination timelines, specifically emphasizing the Tdap booster and the impending flu vaccination season. Her family history was reviewed, and current preventive measures appeared adequate for current health status. I arranged for prescriptions of vitamin D and magnesium oxide to be sent to her pharmacy for convenience. Orders: Orders TDaP Immunization Today Z23 - Encounter for immunization Medications: New magnesium oxide 400 mg PO DAILY 90 tabs 1RF 90 days G47.00 - Insomnia, unspecified cholecalciferol (vitamin D3) 50 mcg PO DAILY 90 caps 1RF 90 days Patient Instructions: - Continue Vitamin D supplements as prescribed. - Start magnesium oxide 400 mg at bedtime to improve sleep quality. - Reduce caffeine intake in the afternoon, ideally after 11:00 AM. - Maintain regular exercise routine and practice healthy dietary choices focusing on protein and portion control. - Schedule next vaccination for flu season starting March. - Follow up in the event of any new or worsening symptoms related to sleep or mood. - Use proper sleep hygiene techniques: keep the bedroom dark and quiet, establish a consistent bedtime routine.
--- OUTSIDE RECORDS SUMMARY | 2024-12-13 08:31 | XMS_ITS | Patient Health Record ---
Author Organization [facility] Address [address] [place] [id number] Care Team Providers Care Certified Social Workers In Health Care Name Role Phone Marietta Snyder Primary Care Provider Catalino Valdivia [phone] Allergies Allergen (clinical drug ingredient) Drug/Non Drug Allergy documented on EMR Reaction Allergy Type Onset Date Status sulfacetamide Sulfacetamide Unknown Drug Allergy Active sulfamethoxazole / trimethoprim Bactrim Unknown Drug Allergy Active Reason For Referral No Information Medications Medication SIG (Take, Route, Fr equency, Duration) Notes Start Date End Date Status Dicyclomine HCl 10 MG 1 or 2 capsules PO Take 30-60 minutes before meals to try to prevent the abdominal discomfort and bloating for 30 day(s) 06/27/2021 Active Immunizations Vaccine Route Administration Date Status Comme nts Influenza Unknown 06/27/2021 Refused Social History Tobacco Use: Social History Observation Description Date Details (start date - stop date) Never Smoker NA - NA Tobacco Use/Smoking Question Answer Notes Patient is a nonsmoker Alcohol Screen Question Answer Notes Did you have a drink containing alcohol in the p ast year? No Points 0 Interpretation Negative Section Notes: Nonsmoker; no sig alcohol Nonsmoker; no sig alcohol Problems Problem Type SNOMED Code ICD Code Onset Dates Problem Status W/U Status Risk Notes Problem 167189640 Irritable bowel syndrome with diarrhea (K58.0) Active confirmed Problem 56773862 Abdominal pain, epigastric (R10.13) Active confirmed Plan Of Treatment Pending Test Test Name Order Date US ABD 06/27/2021 Insurance Providers Payer Name Payer Address Payer Phone Subscriber Number Group Number Insured Name Patient Relationship to Insured Coverage Start Date Coverage End Date [facility] [place] [address] [facility] [place] [phone] [id number] MEERA WAGNER Self - patient is the insured Medical (General) History Medical History History ICD Code Denies AL,DM,CVA,Lung disease,renal dise ase IBS-D--seen by pediatric GI at [facility]--EGD/Colonoscopy in August of [address] Oscar were negative including biopsies from the duodenum, stomach, esophagus, and colon. There was no evidence of any celiac disease nor inflammatory bowel disease. Told of negative labs for celiac disease in 02/2021 Neg. abd U/S in 06/2021 except fatty mazin er Surgical History Surgery Date(Month/Year)
== END 2024-12-13 09:05 | disposition home or self-care (01) ==
LOC: HO.HMCH 08:21
PROVIDERS: PCP Internal Medicine; Visit Provider Internal Medicine
DX: Z00.00 Encounter for general adult medical examination without abnormal findings (principal); G47.00 Insomnia, unspecified; E66.01 Morbid (severe) obesity due to excess calories; Z68.41 Body mass index [BMI] 40.0-44.9, adult; E55.9 Vitamin D deficiency, unspecified; Z23 Encounter for immunization

== ENCOUNTER → 2024-12-13 08:21 | Outpatient (BNVA) | payer OTHER, SELFPAY | PROVIDERS: PCP Internal Medicine; Visit Provider Internal Medicine | DX: Z00.00 Encounter for general adult medical examination without abnormal findings (principal); E55.9 Vitamin D deficiency, unspecified; G47.00 Insomnia, unspecified; E66.01 Morbid (severe) obesity due to excess calories; Z68.41 Body mass index [BMI] 40.0-44.9, adult; Z23 Encounter for immunization | CPT/HCPCS: 90471; 90715; 96127 ==